=== PATIENT | female | born 1970 | race African-American/Black ===

== ENCOUNTER 2017-01-23 04:18 | Emergency (ER) | payer SELFPAY ==
[~2017-01-23] VITALS: Ht 175.3 cm; Wt 85.3 kg
--- NOTE | 2017-01-23 05:17 | ED.ADGEN ---
Adult General Chief Complaint Chief Complaint " I woke up feeling really dizzy in the bed....".." I do get anxiety..." but ... I have not been dizzy for years...." " I have felt like I am coming down with a bug.. for flu.. kayley..." HPI HPI Patient is a 46 year old female who presents with above history and complaints. Patient denies any travel or ill contacts. Patient is normally healthy. Patient does have a past history of anemia. Patient has a history of anxiety disorder. No history of cardiac disorders. No history of DVTs or pulmonary embolisms. No history of TIAs or CVAs. Review of Systems Review of Systems Constitutional: Denies fever or chills [] Eyes: Denies change in visual acuity, redness, or eye pain [] HENT: Denies nasal congestion or sore throat [] Respiratory: Denies cough or shortness of breath [] Cardiovascular: No additional information not addressed in HPI [] GI: Denies abdominal pain, nausea, vomiting, bloody stools or diarrhea [] : Denies dysuria or hematuria [] Musculoskeletal: Denies back pain or joint pain [] Integument: Denies rash or skin lesions [] Neurologic: Denies headache, focal weakness or sensory changes [] complaints of dizziness Endocrine: Denies polyuria or polydipsia [] Family History Family History Noncontributory Current Medications Current Medications Current Medications Medications (Trade) Dose Ordered Sig/Barbi Start Time Stop Time Status Last Admin Dose Admin Aspirin (Hector Aspirin) 325 mg 1X ONCE 01/23/17 06:00 01/23/17 06:01 DC 01/23/17 06:00 325 MG Enoxaparin Sodium (Lovenox 100mg Syringe) 90 mg 1X ONCE 01/23/17 06:00 01/23/17 06:01 DC 01/23/17 06:00 90 MG Info (Do NOT chart on this entry -- for MONITORING) 1 each PRN DAILY PRN 01/23/17 06:00 01/25/17 05:59 Iohexol (Omnipaque 300 Mg/ml) 75 ml 1X ONCE 01/23/17 06:00 01/23/17 06:01 DC 01/23/17 06:05 75 ML Lactated Ringer's (Iv Lactated Ringers) 1,000 ml @ 1,000 mls/hr 1X ONCE 01/23/17 05:30 01/23/17 06:29 DC 01/23/17 05:24 1,000 MLS/HR Potassium Chloride (KCl Oral Soln) 40 meq 1X ONCE 01/23/17 06:00 01/23/17 06:01 DC 01/23/17 06:00 40 MEQ See nursing for home meds Allergies Allergies Allergies Coded Allergies Type Severity Reaction Last Updated Verified ceftriaxone Allergy Unknown 01/23/17 Yes Physical Exam Physical Exam Constitutional: Well developed, well nourished, no acute distress, non-toxic appearance. [] HENT: Normocephalic, atraumatic, bilateral external ears normal, oropharynx moist, no oral exudates, nose normal. [] Eyes: PERRLA, EOMI, conjunctiva pale, no discharge. [] Neck: Normal range of motion, no tenderness, supple, no stridor. [] Cardiovascular:Heart rate regular rhythm, no murmur [] Lungs & Thorax: Bilateral breath sounds equal at apexes on auscultation [] Abdomen: Bowel sounds normal, soft, no tenderness, no masses, no pulsatile masses. [] Skin: Warm, dry, no erythema, no rash. [] Back: No tenderness, no CVA tenderness. [] Extremities: No tenderness, no cyanosis, no clubbing, ROM intact, no edema. No cording in legs or edema. Neurologic: Alert and oriented X 3, normal motor function, normal sensory function, no focal deficits noted. [] DTRs are +2 at patella and brachial. No drift. Systems Accountant equal. No Romberg. Psychologic: Affect anxious, judgement normal, mood normal. [] Current Patient Data Vital Signs Vital Signs Date Time Temp Pulse Resp B/P Pulse Ox O2 Delivery O2 Flow Rate FiO2 01/23/17 04:18 97.6 64 16 100 Room Air Lab Results Laboratory Tests Test 01/23/17 04:55 01/23/17 05:03 White Blood Count 3.8x10^3/uL (4.0-11.0) L Red Blood Count 4.30x10^6/uL (3.50-5.40) Hemoglobin 11.6g/dL (12.0-15.5) L Hematocrit 35.2% (36.0-47.0) L Mean Corpuscular Volume 82fL (79-100) Mean Corpuscular Hemoglobin 27pg (25-35) Mean Corpuscular Hemoglobin Concent 33g/dL (31-37) Red Cell Distribution Width 14.4% (11.5-14.5) Platelet Count 218x10^3/uL (140-400) Neutrophils (%) (Auto) 36% (31-73) Lymphocytes (%) (Auto) 52% (24-48) H Monocytes (%) (Auto) 8% (0-9) Eosinophils (%) (Auto) 3% (0-3) Basophils (%) (Auto) 1% (0-3) Neutrophils # (Auto) 1.3x10^3uL (1.8-7.7) L Lymphocytes # (Auto) 1.9x10^3/uL (1.0-4.8) Monocytes # (Auto) 0.3x10^3/uL (0.0-1.1) Eosinophils # (Auto) 0.1x10^3/uL (0.0-0.7) Basophils # (Auto) 0.0x10^3/uL (0.0-0.2) Prothrombin Time 10.8SEC (9.4-11.4) Prothrombin Time INR 1.1 (0.9-1.1) PTT 23SEC (23-33) D-Dimer (Indigo) 0.98mg/L (0.00-0.50) H Sodium Level 142mmol/L (136-145) Potassium Level 3.1mmol/L (3.5-5.1) L Chloride Level 104mmol/L (98-107) Carbon Dioxide Level 27mmol/L (21-32) Anion Gap 11 (6-14) Blood Urea Nitrogen 11mg/dL (7-20) Creatinine 0.8mg/dL (0.6-1.0) Estimated GFR (Cockcroft-Gault) 77.9 BUN/Creatinine Ratio 14 (6-20) Glucose Level 96mg/dL (70-99) Calcium Level 8.3mg/dL (8.5-10.1) L Total Bilirubin 2.2mg/dL (0.2-1.0) H Aspartate Amino Transferase (AST) 15U/L (15-37) Alanine Aminotransferase (ALT) 25U/L (14-59) Alkaline Phosphatase 42U/L (46-116) L Troponin I Quantitative < 0.017ng/mL (0-0.055) Total Protein 7.1g/dL (6.4-8.2) Albumin 3.8g/dL (3.4-5.0) Albumin/Globulin Ratio 1.2 (1.0-1.7) Urine Collection Type Unknown Urine Color Yellow Urine Clarity Clear Urine pH 7.5 Urine Specific Shafer 1.020 Urine Protein Neg (NEG-TRACE) Urine Glucose (UA) Negmg/dL (NEG) Urine Ketones (Stick) Negmg/dL (NEG) Urine Blood Mod (NEG) Urine Nitrite Neg (NEG) Urine Bilirubin Neg (NEG) Urine Urobilinogen Dipstick 1mg/dL (0.2 mg/dL) Urine Leukocyte Esterase Neg (NEG) Urine RBC 3-5/HPF (0-2) Urine WBC Rare/HPF (0-4) Urine Squamous Epithelial Cells Few/LPF Urine Amorphous Sediment Present/HPF Urine Bacteria Few/HPF (0-FEW) EKG EKG My interpretation EKG shows a sinus rhythm at 64. No findings acute STEMI. Some nonspecific left axis changes. Does have an occasional premature atrial contraction. [] Radiology/Procedures Radiology/Procedures My interpretation chest x-ray shows no acute cardiopulmonary findings. My interpretation of CT chest shows no findings of pulmonary embolism. [] Course & Med Decision Making Course & Med Decision Making Pertinent Labs and Imaging studies reviewed. (See chart for details). Reviewed findings with patient. Patient declined admission at this time. Will follow-up primary care. Push fluids. Push vitamin C drinks. Push fruit juices. Follow-up anemia with primary care. Follow-up elevated lymphocyte count with primary care. Return if any concerns. Take a daily aspirin. [] Final Impression Final Impression 1. Dizzy[] 2. Hypokalemia 3. Dehydration 4. Anemia normocytic 5. Elevated lymphocyte count 6. Elevation in d-dimer 7. History of anxiety Problems: Dragon Disclaimer Dragon Disclaimer This electronic medical record was generated, in whole or in part, using a voice recognition dictation system. ROSE LENNON MD Jan 23, 2017 05:17
[2017-01-23 05:18] LABS: BASO % 1 % (0-3); EOS # 0.1 x10^3/uL (0.0-0.7); EOS % 3 % (0-3); HEMATOCRIT 35.2 % (36.0-47.0); HEMOGLOBIN 11.6 g/dL (12.0-15.5); LYMPH # 1.9 x10^3/uL (1.0-4.8); LYMPH % 52 % (24-48); MEAN CORPUSCULAR HEMOGLOBIN 27 pg (25-35); MEAN CORPUSCULAR HGB CONC 33 g/dL (31-37); MEAN CORPUSCULAR VOLUME 82 fL (79-100); MONO # 0.3 x10^3/uL (0.0-1.1); MONO % 8 % (0-9); NEUT # 1.3 x10^3uL (1.8-7.7); NEUT % 36 % (31-73); PLATELET COUNT 218 x10^3/uL (140-400); RED CELL DISTRIBUTION WIDTH 14.4 % (11.5-14.5); WHITE BLOOD COUNT 3.8 x10^3/uL (4.0-11.0)
[2017-01-23 05:28] LABS: ALBUMIN 3.8 g/dL (3.4-5.0); ALBUMIN/GLOBULIN RATIO 1.2 (1.0-1.7); CALCIUM 8.3 mg/dL (8.5-10.1); CREATININE 0.8 mg/dL (0.6-1.0); GFR 77.9; POTASSIUM 3.1 mmol/L (3.5-5.1); TOTAL BILIRUBIN 2.2 mg/dL (0.2-1.0); TOTAL PROTEIN 7.1 g/dL (6.4-8.2)
[2017-01-23] MEDS ORDERED: IV RINGERS SOLUTION,LACTATED 1,000 ML IV ONE (05:30)
[2017-01-23 05:32] LABS: BILIRUBIN,URINE NEG (NEG); CLARITY,URINE CLEAR; COLOR,URINE YELLOW; GLUCOSE,URINE NEG (NEG)
[2017-01-23 05:33] LABS: AMORPHOUS SEDIMENT,UR PRESENT /HPF; BACTERIA,URINE FEW /HPF (0-FEW); NITRITE,URINE NEG (NEG); SQUAMOUS EPITHELIAL CELL,UR FEW /LPF; UROBILINOGEN,URINE 1 mg/dL (0.2 mg/dL); WBC,URINE RARE /HPF (0-4)
[2017-01-23] MEDS ORDERED: ENOXAPARIN ** NOTE DOSE ** SYRINGE SQ ONE (06:00)
[2017-01-23] MEDS ORDERED: CONTRAST GIVEN MC PRN (06:00)
[2017-01-23] MEDS ORDERED: POTASSIUM CHLORIDE 20 MEQ/15 ML ORAL LIQUID. PO ONE (06:00)
[2017-01-23] MEDS ORDERED: ASPIRIN 325 MG TABLET PO ONE (06:00)
[2017-01-23] MEDS ORDERED: IOHEXOL 300 MG/ML 75 ML VIAL. IV ONE (06:00)
--- NOTE | 2017-01-23 06:25 | RAD ---
PROCEDURE CTA chest with contrast HISTORY Dizziness dyspnea and elevated D-dimer 2 TECHNIQUE Axial helical images of the chest obtained after administration of 75 cc IV Omni 300 contrast. Timing is appropriate for pulmonary artery evaluation. In addition thin cut axial images coronal and sagittal maximum intensity 3D projected imaging was performed.. FINDINGS The pulmonary vessels are well opacified without filling defects. The thoracic aorta appears normal. There is no lymphadenopathy. The lungs are clear. IMPRESSION No acute findings. No evidence of pulmonary embolism. Normal thoracic aorta. PQRS Statement: One or more of the following individualized dose reduction techniques were utilized for this study: 1. Automated exposure control. 2. Adjustment of the mA and/or kV according to patient size. 3. Use of iterative reconstruction technique. Electronically signed by: Ivan Pastor MD (Jan 23, 2017 06:24:49)
[2017-01-23 06:32] VITALS: BP 146/106
--- NOTE | 2017-01-23 07:19 | RAD ---
Exam: AP portable chest. History: Dizziness. Comparison: 02/05/2011. Findings: The heart and mediastinal structures are within normal limits for size. Lungs are without infiltrate. No pneumothorax or pleural effusion is appreciated. Impression: 1. No acute cardiopulmonary process.
--- NOTE | 2017-01-23 07:43 | EKG ---
[address] [address] Test Date: 2017-01-23 Test Time: 04:36:08 Pat Name: COREY DONOVAN Department: Room: Gender: F Electro Plater: OBI : 1970 Requested By: ROSE LENNON Order Number: [id number] Reading MD: Measurements Intervals [place] Rate: 64 P: 43 KS: 144 QRS: 0 QRSD: 82 T: -7 QT: 436 QTc: 454 Interpretive Statements SINUS RHYTHM INTERPOLATED ATRIAL PREMATURE COMPLEX(ES) LEFTWARD AXIS OTHERWISE NORMAL ECG RI6.01 Unconfirmed report No previous ECG available for comparison
== END 2017-01-23 06:52 | disposition home or self-care (01) ==
LOC: ER 04:18
DX: R42 Dizziness and giddiness (principal); E86.0 Dehydration; E87.6 Hypokalemia; D64.9 Anemia, unspecified; D72.820 Lymphocytosis (symptomatic); F41.9 Anxiety disorder, unspecified; R79.1 Abnormal coagulation profile; Z88.1 Allergy status to other antibiotic agents
CPT/HCPCS: 36415; 71010; 71275; 80053; 81001; 84484; 85027; 85379; 85610; 85730; 93005; 96360; 96372; 99285; J1650; J7120; Q9967

== ENCOUNTER 2018-10-01 13:02 | Emergency (ER) | payer OTHER ==
[~2018-10-01] VITALS: Ht 177.8 cm; Wt 99.8 kg
[2018-10-01 13:18] VITALS: BP 153/95
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
== END 2018-10-01 14:14 | disposition home or self-care (01) ==
LOC: ER 13:02
DX: M54.2 Cervicalgia (principal); M54.5 Low back pain; G89.11 Acute pain due to trauma; I10 Essential (primary) hypertension; Z88.8 Allergy status to other drugs, medicaments and biological substances; V43.52XA Car driver injured in collision with other type car in traffic accident, initial encounter; Y93.I9 Activity, other involving external motion; Y92.488 Other paved roadways as the place of occurrence of the external cause; Y99.8 Other external cause status
CPT/HCPCS: 72040; 99283

== ENCOUNTER → 2021-10-08 | Outpatient (CLI) | payer OTHER ==
--- NOTE | 2021-10-08 14:28 | RAD ---
EXAM: Abdomen, single view. HISTORY: Pain. COMPARISON: None. FINDINGS: Frontal views of the abdomen are obtained. There is a small amount of gas and stool within the colon. There is no evidence of bowel obstruction. There is no free air. There are pelvic phleboli ths. IMPRESSION: Nonobstructive bowel gas pattern. Electronically signed by: Mikaela Lombardo MD (10/08/2021 2:26 PM) [id number]
== END ==
LOC: RAD 11:35
PROVIDERS: ATTEND Nurse Practitioner Primary Care
DX: R10.9 Unspecified abdominal pain (principal)
CPT/HCPCS: 74018

== ENCOUNTER 2021-10-09 12:04 | Emergency (ER) | payer OTHER ==
[~2021-10-09] VITALS: Ht 175.3 cm; Wt 88.1 kg
[2021-10-09] MEDS ORDERED: IOHEXOL 300 MG/ML 75 ML VIAL. IV ONE (12:45)
[2021-10-09] MEDS ORDERED: IOHEXOL 300 MG/ML 75 ML VIAL. ONE (12:47)
--- NOTE | 2021-10-09 12:49 | PHYS DOC ---
Past History Past Medical History: Hypertension Past Surgical History: Other Additional Past Surgical Histo: umbilical hernia repaired; keloid ears; fat transfer Alcohol Use: Rarely Drug Use: None General Adult EDM: Chief Complaint: ABDOMINAL PAIN HPI: HPI: Patient is a 50-year-old female coming in for 5 days of abdominal pain. States it started periumbilical area 5 days ago and was cramping, gas-like pain. Patient states that Pepto-Bismol recently helped his been taking Tylenol since. Patient has decreased appetite but the pain is not change with food. Is worse with palpation and movement, at rest describes the pain as a 3 out of 10. Denies any change with urination, says she has occasional yellowish vaginal discharge. Denies any fevers. Has a history of umbilical hernia repair but no other abdominal surgeries. She was seen by her primary care provider and had labs ordered an x-ray yesterday. Has a history of hypertension takes amlodipine. Last p.o. intake 30 minutes prior to arrival. Last bowel movement about an hour and a half prior to evaluation, denies any diarrhea, hematochezia or melena. Review of Systems: Review of Systems: All other systems within normal limits except for as noted in the HPI Allergies: Allergies: Allergies Coded Allergies Type Severity Reaction Last Updated Verified amoxicillin Allergy Unknown 10/09/21 Yes ceftriaxone Allergy Unknown 10/09/21 Yes Physical Exam: PE: Constitutional: Well developed, well nourished, no acute distress, non-toxic appearance. [] HENT: Normocephalic, atraumatic, bilateral external ears normal, nose normal. [] Eyes: PERRLA, conjunctiva normal, no discharge. [] Neck: No rigidity, supple, no stridor. [] Cardiovascular: Regular rate and rhythm, brisk cap refill [] Lungs & Thorax: Non labored symmetric respirations, no tachypnea or respiratory distress [] Abdomen: Soft, nondistended, right lower quadrant tenderness with guarding, mild tenderness in right upper quadrant. Skin: Warm, dry, no erythema, no rash. [] Back: Unremarkable Extremities: No deformities, range of motion grossly intact, no lower extremity edema [] Neurologic: Alert and oriented X 3, no focal deficits noted. [] Psychologic: Affect normal, judgement normal, mood normal. [] Current Patient Data: Vital Signs: Vital Signs Date Time Temp Pulse Resp B/P (MAP) Pulse Ox O2 Delivery O2 Flow Rate FiO2 10/09/21 12:14 98.2 65 18 110/76 (87) 100 Room Air EKG: EKG: [] Radiology/Procedures: Radiology/Procedures: [address] [address] IMAGING REPORT Signed PATIENT: COREY DONOVAN ACCOUNT: [id number] : 1970 LOCATION: ER AGE: 50 SEX: F EXAM STATUS: REG ER ORD. PHYSICIAN: BRYSON ARAUJO MD REASON: right abd pain CM ORDERED PROCEDURE: CT ABD PELV W/ IV CONTRST ONLY INDICATION: Reason: right abd pain CM ORDERED / Spl. Instructions: / History: COMPARISON: None. TECHNIQUE: Axial CT images were obtained through the abdomen and pelvis with intravenous contrast. One or more of the following individualized dose reduction techniques were utilized for this examination: 1. Automated exposure control; 2. Adjustment of the mA and/or kV according to patient size; 3. Use of iterative reconstruction technique. FINDINGS: Linear opacity at the left lower lung could be from scarring or atelectasis. Vascular: Scattered calcific atherosclerosis. Hepatobiliary: There is a couple low-density lesions within the liver with one of them in the right lobe likely cystic in nature and one of them less than a centimeter in size and too small to characterize but a common finding. Pancreas: No peripancreatic edema. Spleen: Spleen unremarkable. Renal/Bladder: Urinary bladder is partially distended with some prominence of the wall. No hydronephrosis. Gastrointestinal: Small amount of free fluid in the pelvis. 37 mm right adnexal cystic lesion. Inflammatory process at the right lower quadrant centered around the base of the appendix with edema to the fat as well as an area of focal fluid measuring approximately 23 mm. The appendix is seen at this location and is dilated measuring approximately 12 mm. No dilated loops of bowel to suggest obstruction. Degenerative changes the spine with multilevel central canal and neural foraminal stenosis. 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 Circular fat-containing structure within the fat lateral to the levator ani which could be from causes such as fat necrosis or oil cyst. Another possible cause would include a small lipoma. IMPRESSION: * Inflammatory changes at the right lower quadrant of the abdomen centered around the base of the appendix with adjacent enlargement of the appendix as well as wall thickening of the cecum with some adjacent fluid. This could be secondary to appendicitis with adjacent early abscess/phlegmon formation. There is adjacent lymphadenopathy. * Right adnexal cystic lesion. Electronically signed by: Claribel Graves MD (10/09/2021 1:54 PM) [facility]- [id number] DICTATED AND SIGNED BY: CLARIBEL GRAVES MD DATE: 10/09/211341 CC: BRYSON ARAUJO MD; PCP,NO ~MTH0 0 [] Heart Score: C/O Chest Pain: No Risk Factors: Risk Factors: DM, Current or recent (<one month) smoker, HTN, HLP, family history of CAD, obesity. Risk Scores: Score 0 - 3: 2.5% MACE over next 6 weeks - Discharge Home Score 4 - 6: 20.3% MACE over next 6 weeks - Admit for Clinical Observation Score 7 - 10: 72.7% MACE over next 6 weeks - Early Invasive Strategies Course & Med Decision Making: Course & Med Decision Making Pertinent Labs and Imaging studies reviewed. (See chart for details) Dick has not had bedside discussed with patient transfer to another hospital system, patient requesting [facility]. Contacted the transfer line and patient accepted by hospitalist Dr. Chavez and general surgeon Dr. Mcdonald. Patient was transported via EMS for evaluation in the emergency department and OR today [] Jimym Disclaimer: Jimmy Disclaimer: This electronic medical record was generated, in whole or in part, using a voice recognition dictation system. Departure Departure: Impression: Primary Impression: Appendicitis, acute Disposition: 02 SHORT TERM HOSPITAL Condition: STABLE Referrals: PCP,NO (PCP) BYRSON ARAUJO MD Oct 09, 2021 12:49
[2021-10-09] MEDS ORDERED: CONTRAST GIVEN. MC PRN (13:00)
[2021-10-09 13:29] LABS: BASO % 1 % (0-3); EOS # 0.1 x10^3/uL (0.0-0.7); EOS % 1 % (0-3); HEMATOCRIT 35.6 % (36.0-47.0); HEMOGLOBIN 11.6 g/dL (12.0-15.5); LYMPH # 1.3 x10^3/uL (1.0-4.8); LYMPH % 23 % (24-48); MEAN CORPUSCULAR HEMOGLOBIN 27 pg (25-35); MEAN CORPUSCULAR HGB CONC 33 g/dL (31-37); MEAN CORPUSCULAR VOLUME 81 fL (79-100); MONO # 0.6 x10^3/uL (0.0-1.1); MONO % 11 % (0-9); NEUT # 3.4 x10^3uL (1.8-7.7); NEUT % 63 % (31-73); PLATELET COUNT 311 x10^3/uL (140-400); RED BLOOD COUNT 4.39 x10^6/uL (3.50-5.40); RED CELL DISTRIBUTION WIDTH 15.1 % (11.5-14.5); WHITE BLOOD COUNT 5.4 x10^3/uL (4.0-11.0)
[2021-10-09 13:36] LABS: CALCIUM 9.4 mg/dL (8.5-10.1); CREATININE 0.8 mg/dL (0.6-1.0); GFR 92.6; POTASSIUM 3.2 mmol/L (3.5-5.1)
[2021-10-09 13:42] LABS: ALBUMIN 3.8 g/dL (3.4-5.0); C REACTIVE PROTEIN 48.8 mg/L (0-3.3); TOTAL BILIRUBIN 1.9 mg/dL (0.2-1.0); TOTAL PROTEIN 7.8 g/dL (6.4-8.2)
[2021-10-09 13:54] LABS: BACTERIA,URINE MANY /HPF (0-FEW); BILIRUBIN,URINE NEG (NEG); CLARITY,URINE HAZY; COLOR,URINE YELLOW; GLUCOSE,URINE NEG (NEG); NITRITE,URINE NEG (NEG); SQUAMOUS EPITHELIAL CELL,UR MANY /LPF
--- NOTE | 2021-10-09 13:56 | RAD ---
INDICATION: Reason: right abd pain CM ORDERED / Spl. Instructions: / History: COMPARISON: None. TECHNIQUE: Axial CT images were obtained through the abdomen and pelvis with intravenous contrast. One or more of the following individualized dose reduction techniques were utilized for this examinat ion: 1. Automated exposure control; 2. Adjustment of the mA and/or kV according to patient size; 3 . Use of iterative reconstruction technique. FINDINGS: Linear opacity at the left lower lung could be from scarring or atelectasis. Vascular: Scattered calcific atherosclerosis. Hepatobiliary: There is a couple low-density lesions within the liver with one of them in the right l obe likely cystic in nature and one of them less than a centimeter in size and too small to character ize but a common finding. Pancreas: No peripancreatic edema. Spleen: Spleen unremarkable. Renal/Bladder: Urinary bladder is partially distended with some prominence of the wall. No hydronephr osis. Gastrointestinal: Small amount of free fluid in the pelvis. 37 mm right adnexal cystic lesion. Inflam matory process at the right lower quadrant centered around the base of the appendix with edema to the fat as well as an area of focal fluid measuring approximately 23 mm. The appendix is seen at this lo cation and is dilated measuring approximately 12 mm. No dilated loops of bowel to suggest obstruction. Degenerative changes the spine with multilevel central canal and neural foraminal stenosis. 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 Circular fat-containing structure within the fat lateral to the levator ani which could be from cause s such as fat necrosis or oil cyst. Another possible cause would include a small lipoma. IMPRESSION: * Inflammatory changes at the right lower quadrant of the abdomen centered around the base of the a ppendix with adjacent enlargement of the appendix as well as wall thickening of the cecum with some a djacent fluid. This could be secondary to appendicitis with adjacent early abscess/phlegmon formation . There is adjacent lymphadenopathy. * Right adnexal cystic lesion. Electronically signed by: Randolph Lagunas MD (10/09/2021 1:54 PM) [id number]
[2021-10-09] MEDS ORDERED: CIPROFLOXACIN 400MG PREMIX 200 ML IV ONE ×2 (14:09→14:15)
[2021-10-09] MEDS ORDERED: IV NORMAL SALINE 1,000ML 1,000 ML IV ONE (14:15)
[2021-10-09 14:38] VITALS: BP 125/80
[2021-10-10 21:22] LABS: CHLAMYDIA PROBE Negative (Negative)
== END 2021-10-09 15:50 | disposition short-term general hospital (02) ==
LOC: ER 12:04
DX: K35.80 Unspecified acute appendicitis (principal); Z20.822 Contact with and (suspected) exposure to COVID-19; I10 Essential (primary) hypertension; Z88.1 Allergy status to other antibiotic agents
CPT/HCPCS: 74177; 80053; 81001; 81025; 83690; 85025; 86140; 87086; 87426; 87491; 87591; 96365; 99285; C9803; J0744; J7030; Q0111; Q9967; U0003